=== PATIENT | male | born 1985 | race Caucasian/White ===

== ENCOUNTER → 2022-06-23 10:38 | Outpatient (BNVA) | payer OTHER, SELFPAY | PROVIDERS: Family Provider Family Medicine; PCP Nurse Practitioner Family; Visit Provider Nurse Practitioner Family | DX: R25.2 Cramp and spasm (principal); R53.83 Other fatigue; E83.42 Hypomagnesemia; E55.9 Vitamin D deficiency, unspecified; R73.9 Hyperglycemia, unspecified; E53.8 Deficiency of other specified B group vitamins; L72.3 Sebaceous cyst; Z13.6 Encounter for screening for cardiovascular disorders | CPT/HCPCS: 80053; 80061; 82306; 82607; 83036; 83735; 84403; 84443; 85025 ==

== ENCOUNTER 2023-05-12 06:38 | Outpatient (CLI) | payer OTHER, SELFPAY ==
--- NOTE | 2023-05-12 06:45 | XR_ITS ---
WS: [id number] XR thoracic spine 3V* [id number] REASON FOR EXAM: M54.50 - Low back pain, unspecified FINDINGS: Mild S-shaped thoracic scoliosis. No significant kyphosis. No significant vertebral body abnormality. Intervertebral disc spaces are intact with minimal narrowing in the mid and lower thoracic spine with associated osteophytosis. IMPRESSION: Mild degenerative spondylosis.
--- NOTE | 2023-05-12 06:45 | XR_ITS ---
WS: [id number] XR lumbar spine 2-3V* [id number] REASON FOR EXAM: M54.50 - Low back pain, unspecified FINDINGS: Mild straightening of the lumbar lordosis. No significant vertebral body abnormality. Intervertebral disc spaces are intact and relatively well preserved. Minimal narrowing of the L5-S1 d isc space. Heterogeneous bone density which appears to bridge the L3-L4 disc space anteriorly. Small defect in t he anterior superior margin of the L4 vertebral body No significant listhesis. IMPRESSION: Mild changes of degenerative spondylosis. The anterior bone density seen at L1 4 L5 very unusual configuration and density for osteophytosis. P ossibly this represents heterogeneous soft tissue ossification post remote trauma.
== END 2023-05-12 06:39 | disposition home or self-care (01) ==
LOC: RAD 06:39
PROVIDERS: Family Provider Family Medicine; PCP Nurse Practitioner Family; Visit Provider Nurse Practitioner Family
DX: M47.814 Spondylosis without myelopathy or radiculopathy, thoracic region (principal); M47.816 Spondylosis without myelopathy or radiculopathy, lumbar region; M79.606 Pain in leg, unspecified
CPT/HCPCS: 72072; 72100

== ENCOUNTER 2023-06-14 06:55 | Outpatient (CLI) | payer OTHER, SELFPAY ==
--- NOTE | 2023-06-14 07:15 | MR_ITS ---
WS: [id number] MRI LUMBAR SPINE NONCONTRAST TECHNIQUE: Sagittal T1, T2 and STIR imaging. Axial T1 and T2 imaging. CLINICAL INFORMATION: low back pain COMPARISON: None. FINDINGS: Mild lumbar curve. No acute compression. Disc bulging worse at L4-L5 and L5-S1. Small disc protrusion s in the lower cervical spine at C5-C6 and lower thoracic spine more prominent at T6-T7. Small centra l protrusion lower thoracic spine T11-12 with mild central canal stenosis. L1-L2: Mild facet arthropathy. Spinal canal and foramen are patent. L2-L3: Mild facet arthropathy. Spinal canal and foramen are patent. L3-L4: Mild annular bulging. Mild LEFT and no significant RIGHT foraminal narrowing. Narrowing of the LEFT subarticular recess. Mild facet arthropathy. L4-L5: Central disc protrusion with moderate to severe central canal stenosis. Impingement on the tra versing LEFT greater than RIGHT L5 nerve roots. Mild facet arthropathy. Foramen are patent. L5-S1: Lobulated disc protrusion worse on the RIGHT with impingement on the traversing RIGHT greater than LEFT S1 nerve roots. Mild central canal stenosis. Mild RIGHT and no significant LEFT foraminal n arrowing. Mild facet arthropathy.Mild central canal stenosis IMPRESSION: 1. Mild lumbar curve. No acute compression. 2. Central disc protrusion L4-5 with moderate to severe central canal stenosis. Impingement traversi ng LEFT greater than RIGHT L5 nerve roots. 3. Lobulated disc protrusion L5-S1 with impingement on the traversing RIGHT greater than LEFT S1 ner ve roots and mild central canal stenosis. Mild RIGHT L5-S1 foraminal narrowing. 4. Mild central canal stenosis L3-4 with impingement LEFT subarticular recess and mild LEFT foramina l narrowing. 5. Shallow central protrusion T11-T12 with mild central canal stenosis.
== END 2023-06-14 06:56 | disposition home or self-care (01) ==
LOC: RAD 06:56
PROVIDERS: Family Provider Family Medicine; PCP Nurse Practitioner Family; Visit Provider Orthopaedic Surgery
DX: M51.27 Other intervertebral disc displacement, lumbosacral region (principal); M79.606 Pain in leg, unspecified; M48.07 Spinal stenosis, lumbosacral region; M51.24 Other intervertebral disc displacement, thoracic region; M48.04 Spinal stenosis, thoracic region
CPT/HCPCS: 72148

== ENCOUNTER → 2024-11-29 08:45 | Outpatient (BNVA) | payer OTHER, SELFPAY | PROVIDERS: Family Provider Family Medicine; PCP Nurse Practitioner Family; Visit Provider Nurse Practitioner Family | DX: E11.9 Type 2 diabetes mellitus without complications (principal) | CPT/HCPCS: 80053; 80061; 82043; 82962; 83036 ==